=== PATIENT | female | born 1935 | race Caucasian/White ===

== ENCOUNTER 2018-05-17 09:56 | Day surgery (SDC) | payer MEDICARE, BC ==
[2018-05-16 12:51] LABS: BASOPHILS % (AUTO) 0.4 % (0-1); EOSINOPHILS # (AUTO) 0.1 X10'3 (0-0.9); EOSINOPHILS % (AUTO) 2.1 % (0-6); HEMATOCRIT 38.1 % (35.0-45.0); HEMOGLOBIN 12.6 g/dl (12.0-16.0); LYMPHOCYTES # (AUTO) 1.1 X10'3 (1.1-4.8); LYMPHOCYTES % (AUTO) 17.2 % (21-51); MEAN CORPUSCULAR HEMOGLOBIN 31.2 PG (27.0-31.0); MEAN CORPUSCULAR HGB CONC 33.2 % (33.0-36.5); MEAN CORPUSCULAR VOLUME 94.1 FL (78-98); MONOCYTES # (AUTO) 0.6 X10'3 (0-0.9); NEUTROPHILS # (AUTO) 4.6 X10'3 (1.8-7.7); NEUTROPHILS % (AUTO) 71.3 % (42-75); PLATELET COUNT 237 X10'3 (140-440); RED BLOOD COUNT 4.05 X10'6 (4.20-5.60); RED CELL DISTRIBUTION WIDTH 14.2 % (11.5-14.5); WHITE BLOOD COUNT 6.5 X10'3 (4.5-11.0)
[2018-05-16 13:03] LABS: PARTIAL THROMBOPLASTIN TIME 26 SECONDS (22-32); PROTHROMBIN TIME 9.8 SECONDS (9.0-12.0)
[2018-05-16 13:21] LABS: ALBUMIN 3.2 G/DL (3.4-5.0); ANION GAP 8 (8-16); BLOOD UREA NITROGEN 21 MG/DL (7-18); BUN/CREATININE RATIO 17.6 (6.6-38.0); CALCIUM 8.9 MG/DL (8.5-10.1); CHLORIDE 106 MMOL/L (99-107); CREATININE 1.19 MG/DL (0.40-0.90); GLUCOSE 115 MG/DL (70-104); POTASSIUM 4.3 MMOL/L (3.5-5.1); SODIUM 142 MMOL/L (135-145); TOTAL CARBON DIOXIDE 28.1 MMOL/L (24-32); eGFR 43 ML/MIN
[2018-05-17] VITALS (11 sets, daily range): BP systolic 106–154; BP diastolic 44–71
[~2018-05-17] VITALS: Ht 165.1 cm; Wt 82.7 kg
[2018-05-17] MEDS ORDERED: CHOL10008 PO (10:30)
[2018-05-17] MEDS ORDERED: UBID1CAP54 PO (10:30)
[2018-05-17] MEDS ORDERED: LOPE-144 (10:30)
[2018-05-17] MEDS ORDERED: BENA20TA82 PO (10:30)
[2018-05-17] MEDS ORDERED: METO50TA17 PO (10:30)
[2018-05-17] MEDS ORDERED: ASPI-920 PO (10:30)
[2018-05-17] MEDS ORDERED: OMEG1CAP13 PO (10:30)
[2018-05-17] MEDS ORDERED: nitroGLYCERIN-Tridil 50MG/D5W 250 ML IV ONE (11:57)
[2018-05-17] MEDS ORDERED: verapamil 2.5 mg/ml inj IV ONE (11:57)
[2018-05-17] MEDS ORDERED: midazolam 2 mg/2 ml injection ONE (11:57)
[2018-05-17] MEDS ORDERED: LIDOcaine 1% (10mg/ml)w/preservative injection 20ml MDV ONE (11:58)
[2018-05-17] MEDS ORDERED: iohexol 350MG/ML 100ml bottle IV ONE ×2 (11:58→13:24)
[2018-05-17] MEDS ORDERED: iohexol 350 MG/ML 50ML vial IV ONE (11:58)
[2018-05-17] MEDS ORDERED: heparin 1,000unit/ml 10ml vial 10 ML ONE (11:58)
[2018-05-17] MEDS ORDERED: fentaNYL/PF 50MCG/1 ML 2ML syringe ONE (12:03)
[2018-05-17] MEDS ORDERED: LORazepam 0.5 MG tablet PO PRN (12:10)
[2018-05-17] MEDS ORDERED: diphenhydrAMINE 25mg capsule PO PRN (12:10)
[2018-05-17] MEDS ORDERED: normal saline 1000ml 1,000 ML IV SCH (12:10)
[2018-05-17] MEDS ORDERED: heparin 25,000 UNIT/250ml bag 250 ML IV ONE (13:55)
[2018-05-17 14:10] LABS: ISTAT HGB ART 10.9 g/dl (12.0-16.0); ISTAT Hct ART 32 %PCV (35-48); ISTAT O2 SATURATION ARTERIAL 97 % (95-98); ISTAT SOURCE ART
[2018-05-17 14:10] LABS: ISTAT Hct MIX 32 %PCV (35-48); ISTAT O2 SATURATION MIX VENOUS 68 % (60-80); ISTAT SOURCE MIX
[2018-05-23] MEDS ORDERED: ISOS30TA6 PO (09:20)
[2018-05-23] MEDS ORDERED: ATOR10TA PO (09:20)
[2018-05-23] MEDS ORDERED: ATOR40TA72 PO (09:20)
== END 2018-05-17 19:10 | disposition home or self-care (01) ==
LOC: SSTAY O 09:56
PROVIDERS: ATTEND Internal Medicine Cardiovascular Disease
DX: I25.10 Atherosclerotic heart disease of native coronary artery without angina pectoris (principal); I35.0 Nonrheumatic aortic (valve) stenosis; I10 Essential (primary) hypertension; I27.20 Pulmonary hypertension, unspecified; I36.1 Nonrheumatic tricuspid (valve) insufficiency; I47.1 Supraventricular tachycardia; H91.8X3 Other specified hearing loss, bilateral; Z79.82 Long term (current) use of aspirin; Z86.79 Personal history of other diseases of the circulatory system; Z90.710 Acquired absence of both cervix and uterus; Z88.5 Allergy status to narcotic agent; Z87.448 Personal history of other diseases of urinary system; Z90.5 Acquired absence of kidney; Z88.6 Allergy status to analgesic agent; Z87.891 Personal history of nicotine dependence; Z85.828 Personal history of other malignant neoplasm of skin; Z85.42 Personal history of malignant neoplasm of other parts of uterus; Z98.41 Cataract extraction status, right eye; Z98.42 Cataract extraction status, left eye; Z79.899 Other long term (current) drug therapy; Z98.890 Other specified postprocedural states; Z83.3 Family history of diabetes mellitus
CPT/HCPCS: 36415; 80048; 82803; 83880; 85014; 85025; 85347; 85610; 85730; 93005; 93460; 99152; 99153; A6257; J1644; J2001; J2250; J3010; J7030; Q0163; Q9967; 93459; A4620; C1769; J3490

== ENCOUNTER 2018-07-17 14:29 | Outpatient (CLI) | payer MEDICARE, BC ==
[~2018-07-17 14:29] MED LIST: ASPI-920 PO; ATOR40TA72 PO; BENA20TA82 PO; CHOL10008 PO; ISOS30TA6 PO; LOPE-144; METO50TA17 PO; OMEG1CAP13 PO; UBID1CAP54 PO
== END 2018-07-17 23:59 | disposition home or self-care (01) ==
LOC: CARD DIAG 14:29
PROVIDERS: ATTEND Internal Medicine Cardiovascular Disease
DX: I08.1 Rheumatic disorders of both mitral and tricuspid valves (principal); I10 Essential (primary) hypertension; Z79.82 Long term (current) use of aspirin; Z90.710 Acquired absence of both cervix and uterus
CPT/HCPCS: 93306